=== PATIENT | female | born 1995 | race Caucasian/White ===

== ENCOUNTER 2016-07-21 00:17 | Emergency (ER) | payer OTHER ==
[2016-07-21 00:48] VITALS: BP 124/74
[2016-07-21] MEDS ORDERED: NS 0.9% 1000 ML* 1,000 ML IV ONE (01:35)
[2016-07-21] MEDS ORDERED: Ondansetron INJ* 2 MG/ML VIAL IV ONE (01:35)
[2016-07-21 02:11] LABS: Hematocrit 39 % (35-47); Hemoglobin 13.4 g/dl (12.0-16.0); Mean Corpuscular HGB Conc 34 g/dl (31-36); Mean Corpuscular Hemoglobin 29 pg (27-31); Mean Corpuscular Volume 85 fL (80-97); Mean Platelet Volume 9 um3 (7.4-10.4); Red Blood Count 4.56 10^6/ul (4.0-5.4); Red Cell Distribution Width 12 % (10.5-15); White Blood Count 12.1 10^3/ul (3.5-10.8)
[2016-07-21 02:23] LABS: ALT 11 U/L (7-52); AST 12 U/L (13-39); Alkaline Phosphatase 51 U/L (34-104); Anion Gap 8 mmol/L (2-11); BUN/Creatinine Ratio 19.4 (8-20); Blood Urea Nitrogen 14 mg/dL (6-24); C Reactive Protein 6.24 mg/L (< 5.00); CO2 Carbon Dioxide 22 mmol/L (22-32); Calcium 9.2 mg/dL (8.6-10.3); Chloride 99 mmol/L (101-111); EGFR African American 132.8 (>60); EGFR Non-African American 103.3 (>60); Globulin 3.1 g/dL (2-4); Glucose 262 mg/dL (70-100); Potassium 3.4 mmol/L (3.5-5.0); Sodium 129 mmol/L (133-145); Total Protein 7.1 g/dL (6.4-8.9)
[2016-07-21 02:39] LABS: Magnesium 1.7 mg/dL (1.9-2.7)
[2016-07-21 02:44] LABS: Urine Bacteria Absent (Absent); Urine Bilirubin Negative (Negative); Urine Glucose 3+(>=500 mg/dL) (Negative); Urine Nitrite Negative (Negative)
[2016-07-21] MEDS ORDERED: Sulfamethox/Trimethoprim DS 800/160* TAB PO ONE (03:16)
--- NOTE | 2016-07-21 03:17 | ED ---
Meir Lamb Janilya, scribed for Alexandre Mathew MD on 07/21/16 at 0133 . HPI Diabetic - HPI Summary HPI Summary: A 20 y/o female came in to [facility] presenting w/ a sudden onset of constant high blood glucose levels starting today. Pt is type I diabetic. Pt reports nausea, denies fever, vomiting. Pt is worried that similar Sx could be triggered by UTI. - History Of Current Complaint Chief Complaint: EDDiabeticProb Hx Obtained From: Patient Onset/Duration: Gradual Onset, Still Present Timing: Constant Severity Initially: Moderate Severity Currently: Moderate Aggravating: Nothing Alleviating: Nothing Associated Signs & Symptoms: Negative Related History: Controlled, DM I - Allergies/Home Medications Allergies/Adverse Reactions: Allergies Allergy/AdvReac Type Severity Reaction Status Date / Time No Known Allergies Allergy Verified 03/01/15 11:59 PMH/Surg Hx/FS Hx/Imm Hx Previously Healthy: Yes Endocrine/Hematology History: Reports: Hx Diabetes - type 1, Hx Thyroid Disease Cardiovascular History: Denies: Hx Hypertension Respiratory History: Denies: Hx Asthma, Hx Chronic Obstructive Pulmonary Disease (COPD) GI History: Denies: Hx Ulcer Infectious Disease History: No Infectious Disease History: Denies: Hx Hepatitis, Hx Human Immunodeficiency Virus (HIV), Traveled Outside the US in Last 30 Days - Family History Known Family History: Positive: Diabetes Negative: Cardiac Disease, Hypertension - Social History Occupation: Student Alcohol Use: Rare Substance Use Type: Reports: None Smoking Status (MU): Former Smoker Review of Systems Negative: Fever Positive: Nausea. Negative: Vomiting All Other Systems Reviewed And Are Negative: Yes Physical Exam Triage Information Reviewed: Yes Vital Signs On Initial Exam: Initial Vitals Temp Pulse Resp BP Pulse Ox 98.5 F 95 18 124/74 98 07/21/16 00:42 07/21/16 00:42 07/21/16 00:42 07/21/16 00:42 07/21/16 00:42 Vital Signs Reviewed: Yes Appearance: Positive: Well-Appearing, No Pain Distress Skin: Positive: Warm Eyes: Positive: ELIZABETH ENT: Positive: Pharynx normal Neck: Positive: Supple Respiratory/Lung Sounds: Positive: Clear to Auscultation, Breath Sounds Present Cardiovascular: Positive: Normal Abdomen Description: Positive: Nontender, Soft Bowel Sounds: Positive: Present Musculoskeletal: Positive: Strength/ROM Intact Neurological: Positive: Sensory/Motor Intact, Normal Gait Diagnostics - Vital Signs Vital Signs Temp Pulse Resp BP Pulse Ox 07/21/16 00:42 98.5 F 95 18 124/74 98 - Laboratory Lab Results: Lab Results 07/21/16 07/21/16 07/21/16 Range/Units 01:30 01:43 01:55 WBC 12.1 H (3.5-10.8) 10^3/ul RBC 4.56 (4.0-5.4) 10^6/ul Hgb 13.4 (12.0-16.0) g/dl Hct 39 (35-47) % MCV 85 (80-97) fL MCH 29 (27-31) pg MCHC 34 (31-36) g/dl RDW 12 (10.5-15) % Plt Count 369 (150-450) 10^3/ul MPV 9 (7.4-10.4) um3 Neut % (Auto) 59.6 (38-83) % Lymph % (Auto) 29.5 (25-47) % [place] % (Auto) 6.9 (1-9) % Eos % (Auto) 3.9 (0-6) % Baso % (Auto) 0.1 (0-2) % Absolute Neuts (auto) 7.2 (1.5-7.7) 10^3/ul Absolute Lymphs (auto) 3.6 (1.0-4.8) 10^3/ul Absolute Monos (auto) 0.8 (0-0.8) 10^3/ul Absolute Eos (auto) 0.5 (0-0.6) 10^3/ul Absolute Basos (auto) 0 (0-0.2) 10^3/ul Absolute Nucleated RBC 0 10^3/ul Nucleated RBC % 0 Sodium (133-145) mmol/L Potassium (3.5-5.0) mmol/L Chloride (101-111) mmol/L Carbon Dioxide (22-32) mmol/L Anion Gap (2-11) mmol/L BUN (6-24) mg/dL Creatinine (0.51-0.95) mg/dL Est GFR ( Amer) (>60) Est GFR (Non-Af Amer) (>60) BUN/Creatinine Ratio (8-20) Glucose (70-100) mg/dL POC Glucose (mg/dL) 279 H (74-106) mg/dL Lactic Acid (0.5-2.0) mmol/L Calcium (8.6-10.3) mg/dL Magnesium (1.9-2.7) mg/dL Total Bilirubin (0.2-1.0) mg/dL AST (13-39) U/L ALT (7-52) U/L Alkaline Phosphatase (34-104) U/L C-Reactive Protein (< 5.00) mg/L Total Protein (6.4-8.9) g/dL Albumin (3.2-5.2) g/dL Globulin (2-4) g/dL Albumin/Globulin Ratio (1-3) Beta HCG, Quant mIU/mL Urine Color Straw Urine Appearance Clear Urine pH 6.0 (5-9) Ur Specific [place] 1.022 (1.010-1.030) Urine Protein Negative (Negative) Urine Ketones 1+ H (Negative) Urine Blood Negative (Negative) Urine Nitrate Negative (Negative) Urine Bilirubin Negative (Negative) Urine Urobilinogen Negative (Negative) Ur Leukocyte Esterase 1+ H (Negative) Urine WBC (Auto) 3+(>20/hpf) H (Absent) Urine RBC (Auto) Trace(0-2/hpf) (Absent) Ur Squamous Epith Cells Present H (Absent) Urine Bacteria Absent (Absent) Urine Glucose 3+(>=500 mg/dl) H (Negative) 07/21/16 07/21/16 Range/Units 01:55 01:55 WBC (3.5-10.8) 10^3/ul RBC (4.0-5.4) 10^6/ul Hgb (12.0-16.0) g/dl Hct (35-47) % MCV (80-97) fL MCH (27-31) pg MCHC (31-36) g/dl RDW (10.5-15) % Plt Count (150-450) 10^3/ul MPV (7.4-10.4) um3 Neut % (Auto) (38-83) % Lymph % (Auto) (25-47) % [place] % (Auto) (1-9) % Eos % (Auto) (0-6) % Baso % (Auto) (0-2) % Absolute Neuts (auto) (1.5-7.7) 10^3/ul Absolute Lymphs (auto) (1.0-4.8) 10^3/ul Absolute Monos (auto) (0-0.8) 10^3/ul Absolute Eos (auto) (0-0.6) 10^3/ul Absolute Basos (auto) (0-0.2) 10^3/ul Absolute Nucleated RBC 10^3/ul Nucleated RBC % Sodium 129 L (133-145) mmol/L Potassium 3.4 L (3.5-5.0) mmol/L Chloride 99 L (101-111) mmol/L Carbon Dioxide 22 (22-32) mmol/L Anion Gap 8 (2-11) mmol/L BUN 14 (6-24) mg/dL Creatinine 0.72 (0.51-0.95) mg/dL Est GFR ( Amer) 132.8 (>60) Est GFR (Non-Af Amer) 103.3 (>60) BUN/Creatinine Ratio 19.4 (8-20) Glucose 262 H (70-100) mg/dL POC Glucose (mg/dL) (74-106) mg/dL Lactic Acid 2.5 H* (0.5-2.0) mmol/L Calcium 9.2 (8.6-10.3) mg/dL Magnesium 1.7 L (1.9-2.7) mg/dL Total Bilirubin 0.50 (0.2-1.0) mg/dL AST 12 L (13-39) U/L ALT 11 (7-52) U/L Alkaline Phosphatase 51 (34-104) U/L C-Reactive Protein 6.24 H (< 5.00) mg/L Total Protein 7.1 (6.4-8.9) g/dL Albumin 4.0 (3.2-5.2) g/dL Globulin 3.1 (2-4) g/dL Albumin/Globulin Ratio 1.3 (1-3) Beta HCG, Quant < 0.60 mIU/mL Urine Color Urine Appearance Urine pH (5-9) Ur Specific [place] (1.010-1.030) Urine Protein (Negative) Urine Ketones (Negative) Urine Blood (Negative) Urine Nitrate (Negative) Urine Bilirubin (Negative) Urine Urobilinogen (Negative) Ur Leukocyte Esterase (Negative) Urine WBC (Auto) (Absent) Urine RBC (Auto) (Absent) Ur Squamous Epith Cells (Absent) Urine Bacteria (Absent) Urine Glucose (Negative) Result Diagrams: 07/21/16 01:55 07/21/16 01:55 Lab Statement: Any lab studies that have been ordered have been reviewed, and results considered in the medical decision making process. Diabetic Course/Dx - Diagnoses Provider Diagnoses: UTI (urinary tract infection), Diabetes mellitus Discharge - Discharge Plan Condition: Improved Disposition: HOME Prescriptions: Sulfamethox/Trimethoprim DS* [Bactrim DS 800/160 TAB*] 1 tab PO BID #14 tab Patient Education Materials: Urinary Tract Infection in Women (ED), Diabetes Mellitus Type 1 in Adults (ED) Referrals: Gaston Smallwood MD [Primary Care Provider] - Additional Instructions: Follow up with your primary care provider. The documentation as recorded by the Meir barry Janilya accurately reflects the service I personally performed and the decisions made by , Alexandre Mathew MD.
== END 2016-07-21 04:26 | disposition home or self-care (01) ==
LOC: ED 00:17
DX: N39.0 Urinary tract infection, site not specified (principal); E10.8 Type 1 diabetes mellitus with unspecified complications; R11.0 Nausea; Z87.891 Personal history of nicotine dependence
CPT/HCPCS: 36415; 80053; 81003; 81015; 83605; 83735; 84702; 85025; 86140; 86703; 87086; 96374; 99283; A9270-GY; J2405

== ENCOUNTER 2016-10-03 12:18 | Observation (INO) | payer OTHER ==
--- NOTE | 2016-10-03 13:33 | ED ---
Throat Pain/Nasal Congestion - HPI Summary HPI Summary: 21 yo female with a history of DM I, typically well controlled in 100's. Patient states noted 2 weeks ago had pain, swelling in throat, placed on PCN by Saurabh. Patient states symptoms improved, however past 24 hours feeling increased swelling, pain with swallowing, decreased eating due to pain and elevated blood sugars. Reports blood sugar this AM was 400. Denies difficulty breathing. FOllowed by DR. gee. No other complaints, concerns. - History of Current Complaint Chief Complaint: EDThroatPain Time Seen by Provider: 10/03/16 12:55 Hx Obtained From: Patient Severity: Moderate Associated Signs And Symptoms: Positive: Dysphagia, Nasal Discharge Related History: Other (Noted In Comments) - DM I - Allergies/Home Medications Allergies/Adverse Reactions: Allergies Allergy/AdvReac Type Severity Reaction Status Date / Time No Known Allergies Allergy Verified 10/03/16 14:15 Home Medications: Home Medications FLUoxetine CAP* [PROzac CAP*] 30 mg PO DAILY 10/03/16 [History Confirmed ] Levothyroxine TAB* [Synthroid TAB*] 88 mcg PO DAILY 10/03/16 [History Confirmed 10/03/16] PMH/Surg Hx/FS Hx/Imm Hx Previously Healthy: No - Dm I Endocrine/Hematology History: Reports: Hx Diabetes - type 1, Hx Thyroid Disease Cardiovascular History: Denies: Hx Hypertension Respiratory History: Denies: Hx Asthma, Hx Chronic Obstructive Pulmonary Disease (COPD) GI History: Denies: Hx Ulcer - Immunization History Date of Tetanus Vaccine: utd Date of Influenza Vaccine: unk Infectious Disease History: Denies: Hx Hepatitis, Hx Human Immunodeficiency Virus (HIV), Traveled Outside the US in Last 30 Days - Family History Known Family History: Positive: Diabetes Negative: Cardiac Disease, Hypertension - Social History Alcohol Use: Rare Substance Use Type: Reports: None Smoking Status (MU): Former Smoker Review of Systems Constitutional: Negative Eyes: Negative Positive: Sore Throat, Ear Ache - L sided Cardiovascular: Negative Respiratory: Negative Gastrointestinal: Negative Genitourinary: Negative Musculoskeletal: Negative Skin: Negative Positive: Weakness Psychological: Normal All Other Systems Reviewed And Are Negative: Yes Physical Exam - Summary Physical Exam Summary: Well appearing, NAD, playing on phone Triage Information Reviewed: Yes Vital Signs On Initial Exam: Initial Vitals Temp Pulse Resp BP Pulse Ox 97.2 F 86 20 123/77 100 10/03/16 12:19 10/03/16 12:19 10/03/16 12:19 10/03/16 12:19 10/03/16 12:19 Vital Signs Reviewed: Yes Appearance: Positive: Well-Appearing, No Pain Distress, Well-Nourished Skin: Positive: Warm, Skin Color Reflects Adequate Perfusion Head/Face: Positive: Normal Head/Face Inspection Eyes: Positive: Normal, EOMI, Conjunctiva Clear ENT: Positive: Pharyngeal erythema, TMs normal - mild amount of fluid behind R TM. L TM partially obstructed by cerumen, Tonsillar swelling - mild to moderate swelling + minimal white exudates noted b/l Neck: Positive: Supple, Nontender, Enlarged Nodes @ - mild submandiblular Psychiatric: Positive: Normal AVPU Assessment: Alert Diagnostics - Vital Signs Vital Signs Temp Pulse Resp BP Pulse Ox 10/03/16 12:19 97.2 F 86 20 123/77 100 - Laboratory Result Diagrams: 10/03/16 13:31 10/03/16 13:31 Lab Statement: Any lab studies that have been ordered have been reviewed, and results considered in the medical decision making process. EENT Course/Dx - Course Course Of Treatment: admit for obs to [facility] - Differential Diagnoses Differential Diagnoses: Influenza, Laryngitis, Pharyngitis - Diagnoses Provider Diagnoses: Tonsillar abscess Discharge - Discharge Plan Condition: Fair Disposition: ADMITTED TO [facility]
[2016-10-03 13:44] LABS: Hematocrit 45 % (35-47); Hemoglobin 14.8 g/dl (12.0-16.0); Mean Corpuscular HGB Conc 33 g/dl (31-36); Mean Corpuscular Hemoglobin 29 pg (27-31); Mean Corpuscular Volume 88 fL (80-97); Mean Platelet Volume 8 um3 (7.4-10.4); Red Blood Count 5.18 10^6/ul (4.0-5.4); Red Cell Distribution Width 13 % (10.5-15); White Blood Count 18.6 10^3/ul (3.5-10.8)
[2016-10-03 13:57] LABS: BUN/Creatinine Ratio 13.9 (8-20); Calcium 9.4 mg/dL (8.6-10.3); EGFR African American 131.5 (>60); EGFR Non-African American 102.3 (>60); Potassium 4.2 mmol/L (3.5-5.0)
[2016-10-03 15:08] LABS: Urine Bacteria Absent (Absent); Urine Bilirubin Negative (Negative); Urine Glucose 3+(>=500 mg/dL) (Negative); Urine Nitrite Negative (Negative)
[2016-10-03 15:28] LABS: EBV Response NO
[2016-10-03] MEDS ORDERED: Iohexol 300* (CONTRAST) 10 ML SDV IV ONE (15:33)
[2016-10-03] MEDS ORDERED: Dextrose 50% Syringe 50 ML* 25 GM/50 ML SYRINGE IV PUSH PRN ×2 (15:34→15:41)
[2016-10-03] MEDS ORDERED: Acetaminophen TAB* 325 MG PO PRN (15:43)
[2016-10-03 15:44] LABS: Mono Internal Control QC Line Present
[2016-10-03] MEDS ORDERED: Benzocaine/Menthol LOZ* 1 LOZENGE PO PRN (15:44)
--- NOTE | 2016-10-03 16:13 | RAD ---
Indication: Neck swelling, evaluate for peritonsillar abscess. Administered 50.0 ml of OMNIPAQUE 300 mgi/ml CT of the neck was performed after IV contrast administration. Coronal and sagittal reconstructed images were obtained. The lung apices are unremarkable. Inferior thyroid lobes are unremarkable. Submandibular glands and parotid glands are unremarkable. Scattered submandibular lymph nodes are noted measuring up to 5 mm on the left and 7 mm on the right no evidence of a peritonsillar abscess is noted. The oral pharynx and nasopharynx are grossly unremarkable. The adenoids and peritonsillar tissues are prominent however. The paranasal sinuses are otherwise unremarkable. No prevertebral soft tissue swelling is noted. Valleculae is otherwise unremarkable. IMPRESSION: NO EVIDENCE OF PERITONSILLAR ABSCESS IS NOTED. PROMINENT ADENOIDS AND PERITONSILLAR TISSUE HOWEVER. SCATTERED LYMPH NODES ARE NOTED IN THE SUBMANDIBULAR SPACE.
[2016-10-03 16:37] LABS: TSH (Thyroid Stimulating Horm) 2.31 mcIU/mL (0.34-5.60)
[2016-10-03 16:43] LABS: C Reactive Protein 4.43 mg/L (< 5.00)
[2016-10-03] MEDS ORDERED: Ketorolac INJ* 30 MG/ML 1 ML VIAL IV PUSH ONE (17:42)
[2016-10-03] MEDS: Insulin LISPRO* 1 UNITS UNIT SUBCUT SCH ×3 (17:44→23:29)
[2016-10-03] MEDS: Chlorhexidine MOUTHWASH 0.12%* 15 ML UDC SWISH SPIT SCH ×2 (17:58→23:25)
[2016-10-03] MEDS: Clindamycin 600 MG IVPREMIX(* 600 MG/50 ML SDV IV SCH (17:58)
[2016-10-03] MEDS ORDERED: Insulin LISPRO* 1 UNITS UNIT SUBCUT SCH (18:00)
[2016-10-03] MEDS: NS 0.9% 1000 ML* 1,000 ML IV SCH (20:29)
[2016-10-03] MEDS ORDERED: Levothyroxine TAB* 88 MCG TAB PO SCH (21:00)
[2016-10-03] MEDS ORDERED: clonazePAM TAB(*) 0.5 MG PO PRN (21:00)
[2016-10-03] MEDS ORDERED: Levothyroxine TAB* 75 MCG TAB PO SCH (21:00)
[2016-10-03] MEDS ORDERED: Insulin GLARGINE(*) 1 UNITS UNIT SUBCUT SCH (21:00)
--- NOTE | 2016-10-03 21:41 | HP ---
HISTORY AND PHYSICAL: DATE OF ADMISSION: 10/03/16 PROVIDER: Buddy Auguste NP ATTENDING PHYSICIAN: Dr. Obando *(report dictated by Buddy Auguste NP). PRIMARY CARE PROVIDER: 1. Dr. Gaston Smallwood. 2. [facility]. CHIEF COMPLAINT: Sore throat and hyperglycemia. HISTORY OF PRESENT ILLNESS: Ms. Arriaga is a 21-year-old female with a past medical history of type 1 diabetes, typically well controlled with blood sugars in the 100 to 200 range, hypothyroidism, who presents to the emergency department today with complaints of severe sore throat and elevated blood sugars in the 400 to 500 ranges. The patient reports that 2 weeks ago, she had a severe sore throat, tested negative for strep and influenza A and B, and due to the severity of her sore throat, she was given a course of penicillin by [facility]. The patient reports that her symptoms resolved and over the past 2 days, she reports her sore throat has slowly come back reporting yesterday she was experiencing a severe sore throat, worse last night, where she felt that she was having difficulty breathing, opening her mouth, and had a very difficult time sleeping last night reporting she had to sleep in "child's pose." She denies fevers or chills. She denies drooling. She reports that she has been able to eat soft foods, but has been avoiding food due to the fear of pain. She denies headache or stiff neck. No nausea or vomiting, but did report some mild diarrhea today. Denies abdominal pain. The patient denies dysuria or hematuria, but does report increased urinary frequency over the past 24 hours, she believes secondary to her high blood sugars. In regards to her type 1 diabetes, the patient reports that she is well controlled. She has been checking her blood sugars every 4 hours. Her highest blood sugar was around 500 last evening. She reports that she has been eating small meals intermittently and drinking fluids. Today, her blood sugar is noted to be 400 and she decided to come to the emergency department for further evaluation and she reports that her blood sugars are typically very well controlled. She denies any history of diabetic ketoacidosis. The patient currently denies any shortness of breath or difficulty breathing, but does report severe sore throat. The patient denies myalgias or extreme fatigue. PAST MEDICAL HISTORY: 1. Type 1 diabetes. 2. Hypothyroidism. 3. History of anxiety. HOME MEDICATIONS: 1. Lantus 26 units q.p.m. 2. Insulin aspart (NovoLog 1 unit per 5 g carb and sliding scale of 1 unit per 25 mg/dL of blood glucose). FAMILY HISTORY: Reports grandmother has a history of breast cancer. No family history of coronary artery disease or diabetes that she is aware of. SOCIAL HISTORY: Denies tobacco or alcohol use. Denies recreational drug use. 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 Her mother, Kerline, is her healthcare proxy. Her number is [phone]. REVIEW OF SYSTEMS: A 14-point review of systems was performed. All the pertinent positives and negatives are mentioned in the history of present illness. All the remaining systems are negative. PHYSICAL EXAMINATION GENERAL APPEARANCE: Well-developed, healthy, 21-year-old female sitting up in the chair. Alert and oriented x3, in no acute distress. VITAL SIGNS: Temperature 98.3, heart rate 94, respirations 16, O2 sat 100% on room air, blood pressure 123/77. HEENT: Head is normocephalic, atraumatic. Pupils equal, reactive to light. Pharyngeal erythema noted with bilateral 2+ tonsillar swelling with small amount of noted white exudates bilaterally. Uvula is midline with no deviation. NECK: Supple. Nontender. Full range of motion in neck. Bilateral submandibular enlarged nodes. She denies tenderness to palpation. RESPIRATORY: No accessory muscle use. Clear to auscultation bilaterally. Good aeration throughout. CARDIAC: S1, S2. Regular rate and rhythm. No murmurs, rubs, or gallops appreciated. No lower extremity edema noted. 2+ DP pulses bilaterally. ABDOMEN: Soft, nontender, nondistended. Normal bowel sounds x4. MUSCULOSKELETAL: No clubbing or cyanosis. Full range of motion in all extremities. NEURO: Cranial nerves II through XII grossly intact. Moves all extremities equally. Sensation to lower extremities is intact to light touch. PSYCH: Alert and oriented x3. Appropriate to situation. Very pleasant on exam. SKIN: No rashes, lesions, or open wounds noted. LABORATORY DATA: WBC is 18.6, RBC 5.18, Hgb 14.8, Hct 45, MCV 88, MCH 29, MCHC 33, RDW 13, platelet count 412. Sodium 131, potassium 4.2, chloride 97, carbon dioxide 26, anion gap 8, BUN 10, creatinine 0.72, glucose 300, calcium 9.4. Influenza A and B negative. Group A strep negative. ASSESSMENT AND PLAN: Ms. 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 1. Pharyngitis: The patient will be admitted to the hospitalist service on observation. Her story is convincing enough that she should have a CT with contrast to rule out retropharyngeal or peritonsillar abscess. She reports that she has had multiple strep throat infections and this is very different and does report early this morning and last night, she had difficulty opening her mouth. It is obvious that she has some infection brewing. Plan to obtain CT scan now and we will determine which antibiotics I prescribe to her. If she has an abscess noted, we will call ENT. She appears nontoxic. No sepsis noted. We will start her on normal saline at 150 mL an hour. Chlorhexidine mouth gargles q.4 hours and acetaminophen for pain management. 2. Type 1 diabetes with hyperglycemia: The patient does not have an anion gap and is not in diabetic ketoacidosis. The patient reports good glucose control when she is at her baseline. She has been checking her fingersticks every 4 hours which will continue to do here. She and I reviewed her lispro sliding scale and she agrees with the plan. Her home dose of Lantus 26 units will be decreased to 24 units this evening as per her request, which I think is reasonable. 3. Hypothyroidism: Continue Synthroid. We will add on TSH. 4. DVT prophylaxis: Low risk, encourage ambulation. 5. Hospital status: Observation. 6. Code status: Full code. TIME SPENT: Approximately 60 minutes was spent on this admission. This case was discussed with attending physician, Dr. Obando, who agrees with the plan of care. BUDDY AUGUSTE, CYHNA [id number]/[facility] #: [id number] [facility]
[2016-10-03] MEDS: Ketorolac INJ* 30 MG/ML 1 ML VIAL IV PUSH PRN (23:24)
[2016-10-03] MEDS: FLUoxetine CAP* 10 MG PO SCH (23:27)
[2016-10-04] MEDS: Clindamycin 600 MG IVPREMIX(* 600 MG/50 ML SDV IV SCH ×2 (02:00→09:38)
[2016-10-04] MEDS: NS 0.9% 1000 ML* 1,000 ML IV SCH (03:50)
[2016-10-04] MEDS: Chlorhexidine MOUTHWASH 0.12%* 15 ML UDC SWISH SPIT SCH ×3 (03:56→09:57)
[2016-10-04] MEDS: Ketorolac INJ* 30 MG/ML 1 ML VIAL IV PUSH PRN ×2 (05:46→09:52)
[2016-10-04] MEDS ORDERED: Levothyroxine TAB* 75 MCG TAB PO SCH (06:00)
[2016-10-04 06:34] LABS: Hematocrit 39 % (35-47); Hemoglobin 13.1 g/dl (12.0-16.0); Mean Corpuscular HGB Conc 34 g/dl (31-36); Mean Corpuscular Hemoglobin 29 pg (27-31); Mean Corpuscular Volume 87 fL (80-97); Mean Platelet Volume 9 um3 (7.4-10.4); Red Blood Count 4.44 10^6/ul (4.0-5.4); Red Cell Distribution Width 13 % (10.5-15); White Blood Count 13.8 10^3/ul (3.5-10.8)
[2016-10-04 06:58] LABS: BUN/Creatinine Ratio 18.8 (8-20); Calcium 8.5 mg/dL (8.6-10.3); EGFR African American 150.6 (>60); EGFR Non-African American 117.1 (>60); Potassium 3.7 mmol/L (3.5-5.0)
[2016-10-04] MEDS: Insulin LISPRO* 1 UNITS UNIT SUBCUT SCH ×2 (07:30→09:37)
[2016-10-04 07:40] VITALS: BP 103/49
[2016-10-04] MEDS ORDERED: predniSONE TAB* 20 MG PO ONE (09:33)
[2016-10-04] MEDS ORDERED: Clindamycin CAP* 150 MG PO ONE (09:33)
--- NOTE | 2016-10-04 09:35 | DCNOTE ---
Subjective Date of Service: 10/04/16 Interval History: Patient reports she was able to sleep through the night. Mom came up from [facility] and spent the night. She woke up with a significant sore throat this morning. Denies fever or chills. No difficulty breathing, no drooling - can open mouth fully. was able to eat solid foods last night. Is ok for DC to home. Mom plans on staying for a day or two. Objective Active Medications: Acetaminophen (Tylenol Tab*) 650 mg PO Q6H PRN PRN Reason: FEVER/PAIN Chlorhexidine Gluconate (Peridex Mouth Wash 0.12%*) 15 ml SWISH SPIT Q4HR [facility] Last Admin: 10/04/16 05:46 Dose: 15 ml Clindamycin HCl (Cleocin Cap*) 300 mg PO ONCE ONE Stop: 10/04/16 09:34 Clonazepam (Klonopin Tab(*)) 0.5 mg PO BEDTIME PRN PRN Reason: ANXIETY Last Admin: 10/03/16 23:26 Dose: 0.5 mg Dextrose (D50w Syringe 50 Ml*) 12.5 gm IV PUSH .FOR FS < 60 - SS PRN PRN Reason: FS < 60 Dextrose (D50w Syringe 50 Ml*) 12.5 gm IV PUSH .FOR FS < 60 - SS PRN PRN Reason: FS < 60 Fluoxetine HCl (Prozac Cap*) 30 mg PO DAILY [facility] Last Admin: 10/03/16 23:27 Dose: 30 mg Sodium Chloride (Ns 0.9% 1000 Ml*) 1,000 mls @ 150 mls/hr IV PER RATE THUY Stop: 10/04/16 22:24 Last Admin: 10/04/16 03:50 Dose: 150 mls/hr Insulin Glargine (Lantus(*)) 24 units SUBCUT Q24H [facility] Last Admin: 10/03/16 23:28 Dose: 24 unit Insulin Human Lispro (Humalog*) 0 units SUBCUT ACHS THUY PRN Reason: Protocol Last Admin: 10/03/16 20:28 Dose: 3 units Insulin Human Lispro (Humalog*) 0 units SUBCUT ACHS THUY PRN Reason: Protocol Last Admin: 10/04/16 07:30 Dose: Not Given Ketorolac Tromethamine (Toradol Inj*) 30 mg IV PUSH Q6H PRN PRN Reason: PAIN Last Admin: 10/03/16 23:24 Dose: 30 mg Levothyroxine Sodium (Synthroid Tab*) 88 mcg PO DAILY@0600 THUY Last Admin: 10/04/16 05:46 Dose: 88 mcg Throat Lozenges (Chloraseptic Chrissy*) 1 chrissy PO Q6H PRN PRN Reason: SORE THROAT Last Admin: 10/03/16 23:27 Dose: 1 chrissy Vital Signs 10/03/16 10/03/16 10/03/16 15:57 19:44 20:00 Temperature 98.0 F 98.1 F Pulse Rate 106 112 Respiratory 16 16 18 Rate Blood Pressure 122/74 145/66 (mmHg) O2 Sat by Pulse 99 97 Oximetry 10/03/16 10/03/16 10/04/16 23:26 23:30 01:26 Temperature 98.3 F Pulse Rate 91 Respiratory 18 18 16 Rate Blood Pressure 130/64 (mmHg) O2 Sat by Pulse 99 Oximetry 10/04/16 10/04/16 10/04/16 04:30 07:31 07:39 Temperature 97.7 F 98.1 F Pulse Rate 84 88 Respiratory 16 17 16 Rate Blood Pressure 112/67 103/49 (mmHg) O2 Sat by Pulse 99 99 Oximetry Oxygen Devices in Use Now: None Appearance: 21 yo healthy appearing female A+O x3, nontoxic appearing. Eyes: No Scleral Icterus, PERRLA Ears/Nose/Mouth/Throat: NL Teeth, Lips, Gums, Mucous Membranes Moist, - - no erythema or exudates noted today, continues to have 2+ tonsils which are equal in size, uvula midline. Neck: NL Appearance and Movements; NL JVP, No Thyroid Enlargement, Masses Respiratory: Symmetrical Chest Expansion and Respiratory Effort, Clear to Auscultation Cardiovascular: NL Sounds; No Murmurs; No JVD, RRR, No Edema Abdominal: NL Sounds; No Tenderness; No Distention Lymphatic: - - + cervical adenopathy, mildly tender to palpation Extremities: No Edema, No Clubbing, Cyanosis Skin: No Rash or Ulcers, No Nodules or Sclerosis Neurological: Alert and Oriented x 3, NL Sensation, NL Gait, NL Muscle Strength and Tone Lines/Tubes/Other Access: Clean, Dry and Intact Peripheral IV Nutrition: Taking PO's Result Diagrams: 10/04/16 05:55 10/04/16 05:55 Assess/Plan/Problems-Billing Assessment: 21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 - Patient Problems (1) Pharyngitis Comment: CT neck showing no evidence of LICENSED STAFF MFT. showing some prominent adenoids and peritonsillar tissue, scattered lymph noed noted in the submandibular space. possible viral illness, but concern for patients rebound pharyngitis and concern for infection, will send home on clinda course. Negative for strep, mono , influenza Mom and patient are requesting a few doses of steroids which I think is reasonable - will send on Pred 20 mg x 3 doses. Pt has taken steroids in the past and tolerated well, she knows to monitor her sugars closely continue chlorohexadine swish and spit TID (2) Diabetes Comment: - well controlled. (3) Hypothyroid Comment: - continue synthroid (4) DVT prophylaxis Comment: ambulating frequently - low risk Status and Disposition: OBV. DC to home today
[2016-10-04] MEDS: FLUoxetine CAP* 10 MG PO SCH (09:52)
--- NOTE | 2016-10-05 03:25 | DS ---
DISCHARGE SUMMARY: DATE OF ADMISSION: 10/03/16 DATE OF DISCHARGE: 10/04/16 ATTENDING PHYSICIAN: Dr. Obando* (report dictated by Buddy Auguste, CHYNA). PRIMARY CARE PROVIDER: 1. [facility]. 2. Dr. Gaston Smallwood follows for type 1 diabetes. PRIMARY DIAGNOSES: 1. Pharyngitis, concern for bacterial infection. 2. Hyponatremia secondary to dehydration. 3. Hyperglycemia in the setting of type 1 diabetes in the setting of acute illness. SECONDARY DIAGNOSES: 1. Hypothyroidism. 2. Anxiety. DISCHARGE MEDICATIONS: 1. Lantus 26 units q.p.m. 2. Insulin aspart (NovoLog) 1 unit/5 g carb and sliding scale 1 unit per 25 mg/ dL of blood glucose. 3. Prozac 30 mg p.o. daily. 4. control Loestrin 1 tab p.o. daily. 5. Synthroid 88 mcg p.o. daily. New medications at discharge: 1. Probiotic 1 cap p.o. daily. 2. Clindamycin 300 mg p.o. q.6 hours x7 days. 3. Chlorhexidine mouthwash 0.12% swish and spit t.i.d. p.r.n. 4. Prednisone 20 mg p.o. daily x2 days for a total course of 3 days. HISTORY OF PRESENT ILLNESS AND HOSPITAL COURSE: Please see history and physical by this author for full admission details. 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 Ms. Arriaga reports that 2 weeks ago, she was given a course of penicillin for severe sore throat, which did test negative for strep. However, due to her symptoms, she was given a course of penicillin. The patient reports that her sore throat resolved. However, over the past 2 days, her sore throat slowly came back worsening over the previous 24 hours to a severe sore throat and having difficulty breathing, opening her mouth and a difficult time sleeping last night. She denied any fevers or chills. Denied drooling. Denied headache or stiff neck. No nausea or vomiting. The patient did note though that her blood sugars are very high in the 400 to 500 range and due to the severity of sore throat, she came to the emergency department for further evaluation. In the emergency department she was noted to have a blood sugar of 300. Decision was to admit the patient to the hospitalist service on OBV for close monitoring and IV antibiotics. The patient presented with a leukocytosis of 18.6. She was also noted to be hyponatremic most likely secondary to dehydration. The patient underwent a CT of soft tissue of neck with contrast, which showed "no evidence of peritonsillar abscesses noted. Prominent adenoids and peritonsillar tissue, however, scattered lymph nodes are noted in the submandibular space." The patient was started on clindamycin IV. She felt much better last evening and this morning on exam, she continues to have a significant sore throat. However , on exam, it appears much less red and there are no exudates noted on today's exams. The patient's mother came from [facility] last evening. Both the mother and the patient have asked for a short course of steroid therapy, which I think is reasonable due to the amount of pain the patient currently is in this morning and the patient will be sent on prednisone 20 mg p.o. daily x3 days. As well, a decision was made to continue the patient's antibiotics due to I suspect most likely a bacterial infection. Per patient, she has had multiple sore throats and strep in the past and this has been a very different experience for her. It is possible that this is just a viral illness. However , with her being a type 1 diabetic, I will treat more conservatively. The patient's blood sugars are much better controlled last night and this morning. Dr. Smallwood stopped in to see the patient this morning and the patient plans to follow up with him as an outpatient for her yearly appointment. The patient's mono screen Group A strep and influenza A and B were all negative. Today, it is noted that her leukocytosis is trending down and has a white blood cell count of 13.8 this morning. Her hyponatremia has resolved with IV fluids and correction of her hyperglycemia. Normal TSH at 2.31. CRP is normal at 4.43. Renal function is normal. Other labs were unremarkable. DISCHARGE PLAN: 1. Patient will be discharged to home. Her mother plans to stay in town for a couple of days. She is instructed to continue with soft diet and advance as tolerated. 2. Follow up with [facility] within 3 days. 3. Follow up with Dr. Gaston Smallwood within the next week or two for her yearly followup. 4. Patient was instructed to rest, drink lots of fluid and if she has any worsening or concerning symptoms, to return to the emergency department. TIME SPENT: Approximately 60 minutes was spent on this discharge. BUDDY AUGUSTE, CHYNA [id number]/CPS #: [id number] ARUN
== END 2016-10-04 10:30 | disposition home or self-care (01) ==
LOC: ED 12:18 → MED 14:39
PROVIDERS: ADMIT Hospitalist; ATTEND Hospitalist
DX: E87.1 Hypo-osmolality and hyponatremia (principal); E86.0 Dehydration; J02.9 Acute pharyngitis, unspecified; E10.65 Type 1 diabetes mellitus with hyperglycemia; Z79.4 Long term (current) use of insulin; E03.9 Hypothyroidism, unspecified; F41.9 Anxiety disorder, unspecified; Z79.899 Other long term (current) drug therapy; Z87.891 Personal history of nicotine dependence
CPT/HCPCS: 36415; 70491; 80048; 81003; 81015; 84443; 85025; 85027; 86140; 86308; 87086; 87502; 87651; 96361; 96374; 96376; 99284; A9270-GY; G0378; J1885; J7512; Q9967

== ENCOUNTER 2017-04-14 13:50 | Emergency (ER) | payer OTHER ==
[2017-04-14] MEDS ORDERED: Ondansetron ODT TAB* 4 MG PO ONE (17:32)
--- NOTE | 2017-04-14 17:41 | ED ---
Head Injury - HPI Summary HPI Summary: Pt here w/ head injury around 12:00 today. Sleeps in an attic space w/ low ceilings and as she went to stand, she struck the Rt posterior aspect of her head. Has pain focally here and since injury has had Rt sided blurred vision intermittently and pain with vertical movements, photophobia, nausea w/o vomiting, and feeling "out of it"/slower to respond, difficulty findings words earlier - this has improved some. She reports she took an adderall today which is nor normal for her. She also has Type 1 diabetes - tx's w/ insulin and glucose levels "have been in the 100's today" (normal for her). She ate a salad while here w/o difficulty. Has been wearing a hat to protect her eyes from light. Last concussion was years ago as a very young child - no residual issues. Here today as she reports one of her professors told her that here eyes were doing something funny. - History Of Current Complaint Chief Complaint: EDHeadInjury Stated Complaint: HEAD INJURY Time Seen by Provider: 04/14/17 16:37 Hx Obtained From: Patient Pain Intensity: 0 - Allergies/Home Medications Allergies/Adverse Reactions: Allergies Allergy/AdvReac Type Severity Reaction Status Date / Time No Known Allergies Allergy Verified 04/14/17 13:54 PMH/Surg Hx/FS Hx/Imm Hx Previously Healthy: Yes Endocrine/Hematology History: Reports: Hx Diabetes - type 1 - controlled insulin , Hx Thyroid Disease Denies: Hx Anticoagulant Therapy, Hx Blood Disorders Cardiovascular History: Denies: Hx Hypertension Respiratory History: Denies: Hx Asthma, Hx Chronic Obstructive Pulmonary Disease (COPD) GI History: Denies: Hx Ulcer Sensory History: Denies: Hx Contacts or Glasses, Hx Hearing Aid Opthamlomology History: Denies: Hx Contacts or Glasses - Immunization History Date of Tetanus Vaccine: utd Date of Influenza Vaccine: unk Infectious Disease History: No Infectious Disease History: Denies: Hx Hepatitis, Hx Human Immunodeficiency Virus (HIV), Traveled Outside the [place] in Last 30 Days - Family History Known Family History: Positive: Diabetes Negative: Cardiac Disease, Hypertension - Social History Occupation: Student Lives: Dormitory/Roommates Alcohol Use: Occasionally Hx Substance Use: No Substance Use Type: Reports: None Hx Tobacco Use: Yes - not currently Smoking Status (MU): Former Smoker Review of Systems Positive: Fatigue - "out of it" as in HPI Positive: Photophobia, Blurred Vision ENT: Negative Negative: Dental Pain Cardiovascular: Negative Negative: Chest Pain Respiratory: Negative Negative: Shortness Of Breath Positive: Nausea. Negative: Abdominal Pain, Vomiting, Diarrhea Positive: no symptoms reported Skin: Other - bump on head as in HPI - no bleeding Positive: Headache - see HPI. Negative: Weakness, Paresthesia, Numbness, Syncope, Slurred Speech Psychological: Normal All Other Systems Reviewed And Are Negative: Yes Physical Exam Triage Information Reviewed: Yes Vital Signs On Initial Exam: Initial Vitals Temp Pulse Resp BP Pulse Ox 98.7 F 93 16 128/78 98 04/14/17 13:53 04/14/17 13:53 04/14/17 13:53 04/14/17 13:53 04/14/17 13:53 Vital Signs Reviewed: Yes Appearance: Positive: Well-Appearing, Well-Nourished, Pain Distress - hat on and is photophobic wth initial removal but acclimates quickly Skin: Positive: Warm, Dry - no erythema, no ecchymosis, no lac over affected area on scalp Head/Face: Positive: Other - Rt posterior parietal/occipital region is TTP w/ mild edema compared to Lt Eyes: Positive: EOMI, ELIZABETH - Rt eye w/ photophobia ENT: Positive: Pharynx normal, TMs normal - no hemotypanum. Negative: Nasal drainage Dental: Negative: Dental Fracture @ Neck: Positive: Supple, Nontender Respiratory/Lung Sounds: Positive: Breath Sounds Present Cardiovascular: Positive: Normal, RRR Musculoskeletal: Positive: Normal, Strength/ROM Intact Neurological: Positive: Sensory/Motor Intact, Alert, Oriented to Person Place, Time, CN Intact II-III, Heel to Toe, Finger to Nose, Facial Symmetry, Speech Normal, Other - slow/deliberate movements w/ finger to nose to finger test but is accurate with finger placement. Negative: Pronator Drift Present Psychiatric: Positive: Normal - Betsy Coma Scale Best Eye Response: 4 - Spontaneous Best Motor Response: 6 - Obeys Commands Best Verbal Response: 5 - Oriented Diagnostics - Vital Signs Vital Signs Temp Pulse Resp BP Pulse Ox 04/14/17 13:53 98.7 F 93 16 128/78 98 - Laboratory Lab Statement: Any lab studies that have been ordered have been reviewed, and results considered in the medical decision making process. Head Injury Course/Dx Course Of Treatment: Pt presents w/ head injury earlier today and sx of headache , Rt eye blurring, photophobia and nausea. Feels "out of it". Other than deliberate finger to nose test which was accurate, no neurological deficits. CT of brain was normal. Pt d/c'd w/ concussion dx and education about monitoring - reviewed danger s/sx of when to return to ED. Pt agrees w/ plan. - Diagnoses Provider Diagnoses: Concussion Discharge - Discharge Plan Condition: Stable Disposition: HOME Patient Education Materials: Concussion (ED) Forms: *School Release Referrals: Gaston Smallwood MD [Primary Care Provider] - Additional Instructions: Rest both physically and cognitively for 48 hours. Follow-up with [facility] in 48 hours for guidance on how/when to return to normal activity. You may take ibuprofen and ice head for pain/swelling. You may take zofran for nausea Avoid stimulants. *If you develop severe headache, vomiting, numbness, tingling, weakness, fatigue , slurred speech, syncope, return to ED
--- NOTE | 2017-04-14 18:07 | RAD ---
INDICATION: Intracranial injury. Stood up and hit head on ceiling COMPARISON: None TECHNIQUE: Noncontrast axial source images were acquired from the skull base to the vertex. FINDINGS: Ventricles/sulci: The ventricles and cisterns are normal in size and configuration for age. Brain parenchyma: There is no focal parenchymal finding, evidence of intracranial mass, or intracranial mass effect. Intracranial hemorrhage:None. Extra-axial spaces: There are no abnormal extra axial fluid collections or evidence of extra-axial mass. Calvarium: There is no calvarial fracture or other calvarial abnormality. Scalp: There is no evidence of scalp or extracalvarial soft tissue abnormality. Paranasal sinuses/mastoid: The paranasal sinuses and mastoid air cells are clear. Other: None. IMPRESSION: NEGATIVE EXAMINATION
[2017-04-14 19:38] VITALS: BP 109/68
== END 2017-04-14 19:37 | disposition home or self-care (01) ==
LOC: ED 13:50
DX: S06.0X9A Concussion with loss of consciousness of unspecified duration, initial encounter (principal); R53.83 Other fatigue; Z87.891 Personal history of nicotine dependence; E10.9 Type 1 diabetes mellitus without complications; W22.8XXA Striking against or struck by other objects, initial encounter; Y93.9 Activity, unspecified; Y92.9 Unspecified place or not applicable
CPT/HCPCS: 70450; 99282; A9270-GY